=== PATIENT | female | born 1945 | race Caucasian/White ===

== ENCOUNTER 2018-07-27 04:02 | Emergency (ER) | payer OTHER ==
[~2018-07-27] VITALS: Ht 160 cm; Wt 77.6 kg
[2018-07-27 04:42] LABS: HEMATOCRIT 35.5 % (36.0-46.0); HEMOGLOBIN 12.1 G/DL (11.9-15.5); MCH 31.7 PG (29.0-34.0); MCHC 34.1 G/DL (30.0-36.0); MCV 92.9 FL (83-99); PLATELET COUNT 217 K/uL (156-360); RBC DIS.WIDTH-SD 44.3 % (39-53); RED BLOOD COUNT 3.82 M/uL (3.80-5.20); WHITE BLOOD COUNT 7.5 K/uL (4.1-10.2)
[2018-07-27 05:02] LABS: ALBUMIN 3.8 g/dL (3.2-4.8)
[2018-07-27 05:03] LABS: CHLORIDE 106 mEq/L (99-109); POTASSIUM 3.7 mEq/L (3.7-5.4); SODIUM 142 mEq/L (136-147)
[2018-07-27 05:05] LABS: GLUCOSE 103 mg/dL (70-99); TOTAL PROTEIN 6.8 g/dL (6.4-8.3)
[2018-07-27 05:07] LABS: TOTAL BILIRUBIN 0.4 mg/dL (0.0-1.0)
[2018-07-27 05:08] LABS: ALKALINE PHOSPHATASE 49 IU/L (3-129)
[2018-07-27 05:09] LABS: CREATININE 0.9 mg/dL (0.6-1.3); GFR ESTIMATE (CALCULATED) > 59 mL/min/
[2018-07-27 05:10] LABS: AST (GOT) 18 IU/L (2-34); UREA NITROGEN (BUN) 27 mg/dL (9-23)
[2018-07-27 05:11] LABS: ALT (GPT) 21 IU/L (3-49)
[2018-07-27 05:16] LABS: TROP-I INTERPRETATION NEGATIVE; TROPONIN-I < 0.01 ng/mL (0.0-0.30)
[2018-07-27 05:59] LABS: LIPASE 75 U/L (1.0-51.0)
[2018-07-27 07:09] VITALS: BP 139/77
== END 2018-07-27 07:10 | disposition home or self-care (01) ==
LOC: EME 04:02
PROVIDERS: Emergency Medicine
DX: T67.5XXA Heat exhaustion, unspecified, initial encounter (principal); E86.0 Dehydration; E11.9 Type 2 diabetes mellitus without complications; E78.5 Hyperlipidemia, unspecified; I10 Essential (primary) hypertension; Z88.1 Allergy status to other antibiotic agents
CPT/HCPCS: 71046; 80053; 81003; 83690; 84484; 85027; 93005; 99281; 99284; J7030